=== PATIENT | female | born 1970 | race Hispanic/Latino ===

== ENCOUNTER 2020-07-17 15:14 | Emergency (ER) | payer SELFPAY ==
[2020-07-17 15:27] VITALS: BP 146/91
== END 2020-07-18 00:05 | disposition left against medical advice (07) ==
LOC: ED 15:14
DX: K08.89 Other specified disorders of teeth and supporting structures (principal); Z53.21 Procedure and treatment not carried out due to patient leaving prior to being seen by health care provider